=== PATIENT | male | born 1940 | race Caucasian/White ===

== ENCOUNTER 2017-05-29 12:42 | Observation (INO) | payer MEDICARE ==
[2017-05-29] VITALS (7 sets, daily range): BP systolic 109–159; BP diastolic 59–72; PULSE 64–89; RESP 16–20; TEMP 98.1–100.7; O2SAT 93–97
[~2017-05-29] VITALS: Ht 188 cm; Wt 112.2 kg
[2017-05-29] MEDS ORDERED: LOSA50TA PO (13:05)
--- NOTE | 2017-05-29 13:12 | PD ---
HPI Chief Complaint: Cold / Flu Symptoms Time Seen by Provider: 12:55 Travel History International Travel<30 days: Yes Contact w/Intl Traveler<30days: Yes Name of Country Traveled to: [place] Traveled to known affect area: No History of Present Illness HPI This 76-year-old female says she been sick for several days. He's been having cough and congestion. He feels very weak and sleepy. He thinks that yesterday he may have passed out. He has a history of hypertension and diabetes. He has no history of heart disease. He has been coughing. He says he feels weak all over. He was in [place] 4 OR 5 days ago [facility] Past Medical History Diminished Hearing: No Hypertension: Yes Influenza Vaccination: No Past Surgical History Other Surgery: Yes (trauma-- back and face) Social History Alcohol Use: Yes Tobacco Use: No Allergies-Medications (Allergen,Severity, Reaction): Coded Allergies: No Known Allergies (Unverified , 05/29/17) Reported Meds & Prescriptions Reported Meds & Active Scripts Active Reported Losartan (Losartan Potassium) 50 Mg Tab 50 Mg PO DAILY Review of Systems General / Constitutional: Positive: Fever, Chills Eyes: No: Diploplia, Blurred Vision HENT: Positive: Sore Throat, No: Headaches, Vertigo Cardiovascular: No: Chest Pain or Discomfort, Palpitations Respiratory: Positive: Cough Gastrointestinal: No: Vomiting, Diarrhea Genitourinary: No: Urgency Musculoskeletal: Positive: Myalgias Skin: No Rash Neurologic: Positive: Weakness Psychiatric: No: Anxiety Endocrine: No: Heat Intolerance Hematologic/Lymphatic: No: Easy Bruising Physical Exam Narrative GENERAL: Well-developed male SKIN: Focused skin assessment warm/dry. HEAD: Atraumatic. Normocephalic. EYES: Pupils equal and round. No scleral icterus. No injection or drainage. ENT: No nasal bleeding or discharge. Mucous membranes pink and moist. NECK: Trachea midline. No JVD. CARDIOVASCULAR: Regular rate and rhythm. No murmur appreciated. RESPIRATORY: No accessory muscle use. There are some basilar rales. Breath sounds equal bilaterally. GASTROINTESTINAL: Abdomen soft, non-tender, nondistended. Hepatic and splenic margins not palpable. MUSCULOSKELETAL: No obvious deformities. No clubbing. No cyanosis. No edema. NEUROLOGICAL: Awake and alert. No obvious cranial nerve deficits. Motor grossly within normal limits. Normal speech. PSYCHIATRIC: Appropriate mood and affect; insight and judgment normal. Data Data Last Documented VS Vital Signs Date Time Temp Pulse Resp B/P (MAP) Pulse Ox O2 Delivery O2 Flow Rate FiO2 05/29/17 14:15 74 18 109/59 (76) 95 Nasal Cannula 2.00 05/29/17 12:47 98.4 Orders Orders Complete Blood Count With Diff (05/29/17 13:06) Comprehensive Metabolic Panel (05/29/17 13:06) Urinalysis - C+S If Indicated (05/29/17 13:06) Influenzae A/B Antigen (05/29/17 13:06) Chest, Single Ap (05/29/17 13:06) Sodium Chlor 0.9% 1000 Ml Inj (Ns 1000 M (05/29/17 13:15) B-Type Natriuretic Peptide (05/29/17 13:29) Blood Culture (05/29/17 13:30) Ceftriaxone Inj (Rocephin Inj) (05/29/17 13:30) Azithromycin Inj (Zithromax Inj) (05/29/17 13:30) Chest, Single Ap (05/29/17 14:28) Lactic Acid Sepsis Protocol (05/29/17 14:40) Sodium Chlor 0.9% 1000 Ml Inj (Ns 1000 M (05/29/17 14:45) Losartan (Cozaar) (05/30/17 09:00) Admit Order (Ed Use Only) (05/29/17 14:48) Labs Laboratory Tests Test 05/29/17 13:10 White Blood Count 14.1 TH/MM3 Red Blood Count 4.93 MIL/MM3 Hemoglobin 14.4 GM/DL Hematocrit 43.6 % Mean Corpuscular Volume 88.5 FL Mean Corpuscular Hemoglobin 29.2 PG Mean Corpuscular Hemoglobin Concent 33.0 % Red Cell Distribution Width 12.7 % Platelet Count 186 TH/MM3 Mean Platelet Volume 9.1 FL Neutrophils (%) (Auto) 79.7 % Lymphocytes (%) (Auto) 9.1 % Monocytes (%) (Auto) 8.8 % Eosinophils (%) (Auto) 0.0 % Basophils (%) (Auto) 2.4 % Neutrophils # (Auto) 11.2 TH/MM3 Lymphocytes # (Auto) 1.3 TH/MM3 Monocytes # (Auto) 1.2 TH/MM3 Eosinophils # (Auto) 0.0 TH/MM3 Basophils # (Auto) 0.3 TH/MM3 CBC Comment AUTO DIFF Differential Total Cells Counted 100 Neutrophils % (Manual) 54 % Band Neutrophils % 35 % Lymphocytes % 10 % Monocytes % 1 % Neutrophils # (Manual) 12.5 TH/MM3 Differential Comment FINAL DIFF MANUAL Blood Urea Nitrogen 21 MG/DL Creatinine 1.40 MG/DL Random Glucose 136 MG/DL Total Protein 7.6 GM/DL Albumin 3.3 GM/DL Calcium Level 8.6 MG/DL Alkaline Phosphatase 64 U/L Aspartate Amino Transf (AST/SGOT) 35 U/L Alanine Aminotransferase (ALT/SGPT) 51 U/L Total Bilirubin 0.5 MG/DL Sodium Level 133 MEQ/L Potassium Level 3.9 MEQ/L Chloride Level 100 MEQ/L Carbon Dioxide Level 23.3 MEQ/L Anion Gap 10 MEQ/L Estimat Glomerular Filtration Rate 49 ML/MIN B-Type Natriuretic Peptide 47 PG/ML MDM Medical Decision Making Medical Screen Exam Complete: Yes Emergency Medical Condition: Yes Medical Record Reviewed: Yes Differential Diagnosis Chest x-rays read as showing some interstitial prominence which I suspect may represent pneumonia. His white count is elevated at 14,000 and he has 54% polys and 35% bands. Patient has been started on Rocephin and Zithromax Narrative Course Patient will be admitted because of his prominent bandemia suggestive of possible pneumonia with sepsis Diagnosis Primary Impression: Pneumonia Admitting Information Admitting Physician Requests: Admit Erick Kelly MD May 29, 2017 13:12
[2017-05-29] MEDS ORDERED: SODIUM CHLOR 0.9% 1000 ML INJ 1,000 ML IV ONE ×2 (13:15→14:45)
[2017-05-29 13:24] LABS: AUTOMATED NEUTROPHIL # 11.2 TH/MM3 (1.8-7.7); BASOPHIL # 0.3 TH/MM3 (0-0.2); BASOPHIL % 2.4 % (0.0-2.0); HEMATOCRIT 43.6 % (39.0-51.0); HEMOGLOBIN 14.4 GM/DL (13.0-17.0); LYMPH % 9.1 % (9.0-44.0); LYMPHOCYTE # 1.3 TH/MM3 (1.0-4.8); MEAN CELL VOLUME 88.5 FL (80.0-100.0); MEAN CORPUSCULAR HEMOGLOBIN 29.2 PG (27.0-34.0); MEAN PLATELET VOLUME 9.1 FL (7.0-11.0); MONO % 8.8 % (0.0-8.0); MONOCYTE # 1.2 TH/MM3 (0-0.9); NEUT % 79.7 % (16.0-70.0); PLATELET COUNT 186 TH/MM3 (150-450); RED BLOOD COUNT 4.93 MIL/MM3 (4.50-5.90); RED CELL DISTRIBUTION WIDTH 12.7 % (11.6-17.2); WHITE BLOOD COUNT 14.1 TH/MM3 (4.0-11.0)
[2017-05-29] MEDS ORDERED: cefTRIAXone INJ 1,000 MG in SODIUM CHLORIDE 0.9% INJ 100 ML IV ONE (13:30)
[2017-05-29] MEDS ORDERED: AZITHROMYCIN INJ 500 MG in SODIUM CHLOR 0.9% 250 ML INJ 250 ML IV ONE (13:30)
[2017-05-29 13:32] LABS: CHLORIDE 100 MEQ/L (98-107); SODIUM (NA) 133 MEQ/L (136-145)
[2017-05-29 13:35] LABS: ALBUMIN 3.3 GM/DL (3.4-5.0); BICARBONATE 23.3 MEQ/L (21.0-32.0); CALCIUM 8.6 MG/DL (8.5-10.1); GLUCOSE,RANDOM 136 MG/DL (74-106)
[2017-05-29 13:36] LABS: BLOOD UREA NITROGEN 21 MG/DL (7-18)
[2017-05-29 13:38] LABS: ALT (GPT) 51 U/L (12-78); AST (GOT) 35 U/L (15-37); GLOMERULAR FILTRATION RATE 49 ML/MIN (>89)
[2017-05-29 13:40] LABS: TOTAL BILIRUBIN ADULT 0.5 MG/DL (0.2-1.0); TOTAL PROTEIN 7.6 GM/DL (6.4-8.2)
[2017-05-29 13:41] LABS: ALKALINE PHOSPHATASE 64 U/L (45-117)
--- NOTE | 2017-05-29 13:49 | RADRPT ---
EXAM DATE/TIME: 05/29/2017 13:23 [facility] COMPARISON: No previous studies available for comparison. INDICATIONS : Cough, fever MEDICAL HISTORY : None. SURGICAL HISTORY : None. ENCOUNTER: Initial ACUITY: 4 - 6 days PAIN SCORE: 0/10 LOCATION: Bilateral chest FINDINGS: The heart size is normal. There is prominence of the interstitial markings. There is a questionable f ocal density in the lateral lower right chest. This could potentially be related to nipple shadow giv en its location. No focal alveolar consolidation is seen. No effusion is seen. The bony structures ap pear grossly intact. CONCLUSION: 1. Mild prominence of the interstitium. This is nonspecific. 2. Small nodular density projecting over the right base. This could represent nipple shadow versus un derlying small pulmonary nodule. One could repeat the chest x-ray with nipple markers for further ben luation. Kunal Olivas MD on May 29, 2017 at 13:46 Board Certified Radiologist. This report was verified electronically.
[2017-05-29 13:50] LABS: BANDS 35 % (0-6); LYMPHOCYTES 10 % (9-44); MONOCYTES 1 % (0-8); NEUTROPHIL # MANUAL DIFF 12.5 TH/MM3 (1.8-7.7); POLYS (SEG NEUTROPHILS) 54 % (16-70)
[2017-05-29] MEDS ORDERED: NALOXONE HCL 0.4 MG/ML AMP IV PUSH PRN (15:00)
[2017-05-29] MEDS ORDERED: LACTULOSE SYRUP 20 GM/30 ML CUP PO PRN (15:00)
[2017-05-29] MEDS ORDERED: TEMAZEPAM 15 MG CAP PO PRN (15:00)
[2017-05-29] MEDS ORDERED: BISACODYL 10 MG SUPP RECTAL PRN (15:00)
[2017-05-29] MEDS ORDERED: SODIUM CHLORIDE 0.9% FLUSH 10 ML FLUSH IV FLUSH PRN (15:00)
[2017-05-29] MEDS ORDERED: ONDANSETRON HCL 4 MG/2 ML VIAL IVP PRN (15:00)
[2017-05-29] MEDS ORDERED: ACETAMINOPHEN 325 MG TAB PO PRN (15:00)
[2017-05-29] MEDS ORDERED: MAGNESIUM HYDROXIDE SUSP 30 ML CUP PO PRN (15:00)
[2017-05-29] MEDS ORDERED: RESP: ALBUTEROL 2.5 MG/IPRATROPIUM 0.5 MG NEB (PRN) NEB (15:00)
[2017-05-29] MEDS ORDERED: SENNOSIDES 8.6 MG TAB PO PRN (15:00)
[2017-05-29] MEDS: ENOXAPARIN SODIUM 40 MG/0.4 ML SYRINGE SQ SCH (15:05)
--- NOTE | 2017-05-29 15:51 | RADRPT ---
EXAM DATE/TIME: 05/29/2017 14:47 [facility] COMPARISON: CHEST SINGLE AP, May 29, 2017, 13:23. INDICATIONS : Repeat ap chest with nipple markers MEDICAL HISTORY : None. SURGICAL HISTORY : None. ENCOUNTER: Subsequent ACUITY: 4 - 6 days PAIN SCORE: 0/10 LOCATION: Bilateral Chest FINDINGS: Nipple markers were placed and disease existing right lower lobe nodule is not reproduced, however do es not correspond to the patient's nipple. This could simply have been overlap of shadows. Mild promi nence of interstitial markings has not changed. CONCLUSION: Previously questioned right lung base nodule does not correspond to the patient's nipple, however is not reproduced probably due to overlap of shadows and there is no change in slight prominence of the interstitial markings. oClin Bernabe MD on May 29, 2017 at 15:48 Board Certified Radiologist. This report was verified electronically.
--- NOTE | 2017-05-29 15:54 | HHI.HP ---
[facility] Unknown Admission Diagnosis PNEUMONIA Diagnoses: (1) Pneumonia Chief Complaint: Generalized weakness. Cough Fever Travel History International Travel<30 Days: Yes Contact w/Intl Traveler <30 Da: Yes Name of Country Traveled to: [place] Traveled to Known Affected Are: No History of Present Illness Written by Gwendolyn Umaña, acting as scribe for Dr. Rivera on 05/29/17 at 15:41. Mr. Edwards is a pleasant 76-year-old male patient with a known medical history of hypertension who presented to the ED with generalized weakness, cough, fever and chills x 5 days. Patient states that he was on a cruise in [place] and returned back with the aforementioned complaints when this morning he states he was too weak to even get out of bed. Patient states he has had subjective fevers , chills and diaphoresis, did not check his temperature at home. Denies any abdominal pain, nausea, vomiting or diarrhea. Does admit to poor appetite the last several days. Patient has also had a productive cough with white colored phlegm noted. States he is in relatively good health. Denies any other complaints. Review of Systems Constitutional: COMPLAINS OF: Diaphoretic episodes, Fatigue, Fever, Chills, Change in appetite, Night Sweats, DENIES: Weight loss, Dizziness Respiratory: COMPLAINS OF: Cough, Sputum production, Shortness of breath Cardiovascular: DENIES: Chest pain Gastrointestinal: DENIES: Abdominal pain, Bloody stools, Constipation, Diarrhea , Nausea, Vomiting Musculoskeletal: COMPLAINS OF: Muscle aches Integumentary: DENIES: Rash Neurologic: DENIES: Abnormal gait Psychiatric: DENIES: Anxiety Except as stated in HPI: all other systems reviewed are Neg Past Family Social History Past Medical History Hypertension Past Surgical History Denies any previous surgeries. Reported Medications Active Reported Losartan (Losartan Potassium) 50 Mg Tab 50 Mg PO DAILY Allergies: Coded Allergies: No Known Allergies (Unverified , 05/29/17) Active Ordered Medications Current Medications Medications (Trade) Dose Ordered Sig/[place] Route Start Time Stop Time Status Last Admin Sodium Chloride 1,000 ml @ 999 mls/hr BOLUS ONCE IV 05/29/17 14:45 05/29/17 15:45 05/29/17 15:05 (Cozaar) 50 mg DAILY PO 05/30/17 09:00 (NS Flush) 2 ml UNSCH PRN IV FLUSH 05/29/17 15:00 (NS Flush) 2 ml BID IV FLUSH 05/29/17 21:00 (Tylenol) 650 mg Q4H PRN PO 05/29/17 15:00 (Zofran Inj) 4 mg Q6H PRN IVP 05/29/17 15:00 (Restoril) 15 mg HS PRN PO 05/29/17 15:00 (Lovenox Inj) 40 mg Q24H SQ 05/29/17 15:00 05/29/17 15:05 (Narcan Inj) 0.4 mg UNSCH PRN IV PUSH 05/29/17 15:00 (Deedee-Colace) 1 tab BID PO 05/29/17 21:00 (Milk Of Magnesia Liq) 30 ml Q12H PRN PO 05/29/17 15:00 (Senokot) 17.2 mg Q12H PRN PO 05/29/17 15:00 (Dulcolax Supp) 10 mg DAILY PRN RECTAL 05/29/17 15:00 (Lactulose Liq) 30 ml DAILY PRN PO 05/29/17 15:00 Ceftriaxone Sodium 1000 mg/ Sodium Chloride 100 ml @ 200 mls/hr Q24H IV 05/30/17 13:00 Azithromycin 500 mg/Sodium Chloride 250 ml @ 250 mls/hr Q24H IV 05/30/17 14:00 (Duoneb Neb) 1 ampule Q4HR NEB PRN NEB 05/29/17 15:00 (Duoneb Neb) 1 ampule Q6HR WHILE AWAKE NEB NEB 05/29/17 20:00 Family History Denies any significant family medical history. Social History Denies any current tobacco use, does admit to quitting smoking 40 years ago. Admits to occasional alcohol use. Denies any illicit drug use. Physical Exam Vital Signs Vital Signs Date Time Temp Pulse Resp B/P (MAP) Pulse Ox O2 Delivery O2 Flow Rate FiO2 05/29/17 14:15 74 18 109/59 (76) 95 Nasal Cannula 2.00 05/29/17 12:47 98.4 64 16 129/66 (08) 93 Physical Exam GENERAL: This is a well-nourished, well-developed male patient, lying in bed in no apparent distress. SKIN: No rashes, ecchymoses or lesions. Cool and dry. HEAD: Atraumatic. Normocephalic. EYES: Pupils equal round and reactive. Extraocular motions intact. No scleral icterus. No injection or drainage. ENT: Nose without bleeding, purulent drainage or septal hematoma. Throat without erythema, tonsillar hypertrophy or exudate. Uvula midline. Airway patent. NECK: Trachea midline. No JVD. Supple. CARDIOVASCULAR: Regular rate and rhythm without murmurs, gallops, or rubs. RESPIRATORY Scattered wheezing and bronchial breath sounds to posterior lung blank. Diminished in the bases. Breath sounds equal bilaterally. No rales, or rhonchi. GASTROINTESTINAL: Abdomen soft, non-tender, nondistended. No guarding. MUSCULOSKELETAL: Extremities without clubbing, cyanosis, or edema. No joint tenderness, effusion, or edema noted. NEUROLOGICAL: Awake and alert. Cranial nerves II through XII intact. Motor and sensory grossly within normal limits. Five out of 5 muscle strength in all muscle groups. Normal speech. Laboratory Laboratory Tests Test 05/29/17 13:10 05/29/17 15:27 White Blood Count 14.1 Red Blood Count 4.93 Hemoglobin 14.4 Hematocrit 43.6 Mean Corpuscular Volume 88.5 Mean Corpuscular Hemoglobin 29.2 Mean Corpuscular Hemoglobin Concent 33.0 Red Cell Distribution Width 12.7 Platelet Count 186 Mean Platelet Volume 9.1 Neutrophils (%) (Auto) 79.7 Lymphocytes (%) (Auto) 9.1 Monocytes (%) (Auto) 8.8 Eosinophils (%) (Auto) 0.0 Basophils (%) (Auto) 2.4 Neutrophils # (Auto) 11.2 Lymphocytes # (Auto) 1.3 Monocytes # (Auto) 1.2 Eosinophils # (Auto) 0.0 Basophils # (Auto) 0.3 CBC Comment AUTO DIFF Differential Total Cells Counted 100 Neutrophils % (Manual) 54 Band Neutrophils % 35 Lymphocytes % 10 Monocytes % 1 Neutrophils # (Manual) 12.5 Differential Comment FINAL DIFF MANUAL Blood Urea Nitrogen 21 Creatinine 1.40 Random Glucose 136 Total Protein 7.6 Albumin 3.3 Calcium Level 8.6 Alkaline Phosphatase 64 Aspartate Amino Transf (AST/SGOT) 35 Alanine Aminotransferase (ALT/SGPT) 51 Total Bilirubin 0.5 Sodium Level 133 Potassium Level 3.9 Chloride Level 100 Carbon Dioxide Level 23.3 Anion Gap 10 Estimat Glomerular Filtration Rate 49 B-Type Natriuretic Peptide 47 Date/Time Source Procedure Growth Status 05/29/17 13:15 Blood Peripheral Aerobic Blood Culture Pending Received 05/29/17 13:15 Blood Peripheral Anaerobic Blood Culture Pending Received 05/29/17 13:15 Nasal Aspirate Influenza Types A,B Antigen (CURRY) - Final NEGATIVE FOR FLU A AND B ANTIGEN.... Complete Result Diagram: 05/29/17 1310 05/29/17 1310 Imaging Last Impressions Chest X-Ray 05/29/17 1306 Signed Impressions: Service Date/Time: Wednesday, May 29, 2017 13:23 - CONCLUSION: 1. Mild prominence of the interstitium. This is nonspecific. 2. Small nodular density projecting over the right base. This could represent nipple shadow versus underlying small pulmonary nodule. One could repeat the chest x-ray with nipple markers for further evaluation. Kunal Olivas MD Septic Shock Reassessment Septic shock perfusion: reassessment completed Caprini VTE Risk Assessment Caprini VTE Risk Assessment: Mod/High Risk (score >= 2) Caprini Risk Assessment Model Point Value = 1 Point Value = 2 Point Value = 3 Point Value = 5 Age 41-60 Minor surgery BMI > 25 kg/m2 Swollen legs Varicose veins or History of unexplained or recurrent spontaneous Oral contraceptives or hormone replacement Sepsis (< 1 month) Serious lung disease, including pneumonia (< 1 month) Abnormal pulmonary function Acute myocardial infarction Congestive heart failure (< 1 month) History of inflammatory bowel disease Medical patient at bed rest Age 61-74 Arthroscopic surgery Major open surgery (> 45 min) Laparoscopic surgery (> 45 min) Malignancy Confined to bed (> 72 hours) Immobilizing plaster cast Central venous access Age >= 75 History of VTE Family history of VTE Factor V Leiden Prothrombin [id number] Lupus anticoagulant Anticardiolipin antibodies Elevated serum homocysteine Heparin-induced thrombocytopenia Other congenital or acquired thrombophilia Stroke (< 1 month) Elective arthroplasty Hip, pelvis, or leg fracture Acute spinal cord injury (< 1 month) Prophylaxis Regimen Total Risk Factor Score Risk Level Prophylaxis Regimen 0-1 Low Early ambulation 2 Moderate Order ONE of the following: *Sequential Compression Device (SCD) *Heparin 5000 units SQ BID 3-4 Higher Order ONE of the following medications: *Heparin 5000 units SQ TID *Enoxaparin/Lovenox 40 mg SQ daily (WT < 150 kg, CrCl > 30 mL/min) *Enoxaparin/Lovenox 30 mg SQ daily (WT < 150 kg, CrCl > 10-29 mL/min) *Enoxaparin/Lovenox 30 mg SQ BID (WT < 150 kg, CrCl > 30 mL/min) AND/OR *Sequential Compression Device (SCD) 5 or more Highest Order ONE of the following medications: *Heparin 5000 units SQ TID (Preferred with Epidurals) *Enoxaparin/Lovenox 40 mg SQ daily (WT < 150 kg, CrCl > 30 mL/min) *Enoxaparin/Lovenox 30 mg SQ daily (WT < 150 kg, CrCl > 10-29 mL/min) *Enoxaparin/Lovenox 30 mg SQ BID (WT < 150 kg, CrCl > 30 mL/min) AND *Sequential Compression Device (SCD) Assessment and Plan Problem List: (1) Pneumonia ICD Code: J18.9 - Pneumonia, unspecified organism Status: Acute Assessment and Plan Mr. Edwards is a pleasant 76-year-old male patient with a known medical history of hypertension who presented to the ED with generalized weakness, cough, fever and chills x 5 days. Bilateral community-acquired pneumonia with subjective, fever, chills, cough WBC 14.1. Afebrile since presentation. Continue to monitor. Lactic acid pending. BNP 47. CXR reviewed showing mild prominence of the interstitium. Small nodular density projecting over the right base, possible underlying small pulmonary nodule. Will repeat CXR with nipple markers. Follow image. Ensure hydration. Status post 2 L NS bolus in ED. Continue maintenance IVF after administration. Will start on Azithromycin and Ceftriaxone IV. Blood cultures obtained and pending. Follow. Nasal aspirate negative for influenza. Duonebs scheduled and available PRN wheezing/SOB. Supplemental O2 to keep sats > 92%. PT to evaluate and treat. Hypertension, chronic: Continue home medications. Acute kidney injury: likely secondary to dehydration vs infection vs chronic from hypertension. Will follow BMP. Continue to monitor. DVT Prophylaxis: SCDs. Lovenox. This note was transcribed by DANIELA Villela . I, Dr. Jazmin Rivera personally performed the history, physical exam, and medical decision making; and confirmed the accuracy of the information in the transcribed note. Authenticated by Dr. Jazmin Rivera on 05/29/17 at 15:41. Problem Qualifiers (1) Pneumonia: Gwendolyn Umaña May 29, 2017 15:54 Jazmin Rivera MD May 29, 2017 17:39
[2017-05-29] MEDS: SODIUM CHLOR 0.9% 1000 ML INJ 1,000 ML IV SCH (16:00)
[2017-05-29 17:20] LABS: BILIRUBIN, URINE NEG (NEG); BLOOD, URINE SMALL (NEG); GLUCOSE,URINE NEG (NEG); KETONE, URINE NEG (NEG); NITRITE,URINE NEG (NEG); PH, URINE 5.5 (5.0-8.5); URINE LEUKOCYTE ESTERASE NEG (NEG)
[2017-05-29 17:26] LABS: URINE COLOR YELLOW (YELLW/STRAW)
[2017-05-29 17:27] LABS: RBC, URINE 0-3 /hpf (0-3); SQUAMOUS EPITHELIAL CELL URINE 0-5 /hpf (0-5); WBC, URINE 0-2 /hpf (0-5)
[2017-05-29] MEDS: RESP: ALBUTEROL 2.5 MG/IPRATROPIUM 0.5 MG NEB (SCH) NEB (19:32)
[2017-05-29] MEDS: DOCUSATE SODIUM 50 MG/SENNA 8.6 MG TAB PO SCH (21:00)
[2017-05-29] MEDS: SODIUM CHLORIDE 0.9% FLUSH 10 ML FLUSH IV FLUSH SCH (21:00)
[2017-05-30] VITALS (8 sets, daily range): BP systolic 127–150; BP diastolic 59–84; PULSE 74–86; RESP 12–24; TEMP 98.1–101.4; O2SAT 91–98
[2017-05-30] MEDS: SODIUM CHLOR 0.9% 1000 ML INJ 1,000 ML IV SCH ×2 (03:00→12:00)
[2017-05-30] MEDS: RESP: ALBUTEROL 2.5 MG/IPRATROPIUM 0.5 MG NEB (SCH) NEB ×3 (07:33→19:17)
[2017-05-30] MEDS: DOCUSATE SODIUM 50 MG/SENNA 8.6 MG TAB PO SCH ×2 (08:28→21:32)
[2017-05-30] MEDS: SODIUM CHLORIDE 0.9% FLUSH 10 ML FLUSH IV FLUSH SCH ×2 (08:28→21:00)
[2017-05-30] MEDS: LOSARTAN 50 MG TAB PO SCH (08:31)
--- NOTE | 2017-05-30 09:51 | HHI.PR ---
Subjective Remarks In the chair. Feels shortness of breath and feels tired. Less cough today not much sputum production. No fever or chills overnight. However last night he had a repeat fever of 101. Objective Vitals Vital Signs Date Time Temp Pulse Resp B/P (MAP) Pulse Ox O2 Delivery O2 Flow Rate FiO2 05/30/17 07:36 98 Nasal Cannula 2.00 05/30/17 04:33 98.4 05/30/17 00:50 101.4 77 24 136/59 (84) 95 05/29/17 21:11 100.7 89 20 159/72 (101) 97 05/29/17 19:32 94 Nasal Cannula 2.00 05/29/17 18:19 98.1 68 18 144/70 (94) 96 05/29/17 16:30 96 Nasal Cannula 2.00 05/29/17 15:42 70 18 128/62 (84) 97 Nasal Cannula 2.00 05/29/17 14:15 74 18 109/59 (76) 95 Nasal Cannula 2.00 05/29/17 12:47 98.4 64 16 129/66 (87) 93 I/O 05/29/17 05/29/17 05/29/17 05/30/17 05/30/17 05/30/17 07:00 15:00 23:00 07:00 15:00 23:00 Intake Total 1250 ml 1100 ml Output Total 1250 ml Balance 1250 ml -150 ml Intake IV Total 1250 ml 1100 ml Output Urine Total 1250 ml # Bowel Movements 0 Result Diagram: 05/29/17 1310 05/29/17 1310 Imaging Last Impressions Chest X-Ray 05/29/17 1428 Signed Impressions: Service Date/Time: Monday, May 29, 2017 14:47 - CONCLUSION: Previously questioned right lung base nodule does not correspond to the patient's nipple, however is not reproduced probably due to overlap of shadows and there is no change in slight prominence of the interstitial markings. Colin Bernabe MD Objective Remarks GENERAL: This is a well-nourished, well-developed male patient, lying in bed in no apparent distress. SKIN: No rashes, ecchymoses or lesions. Cool and dry. HEAD: Atraumatic. Normocephalic. EYES: Pupils equal round and reactive. Extraocular motions intact. No scleral icterus. No injection or drainage. ENT: Nose without bleeding, purulent drainage or septal hematoma. Throat without erythema, tonsillar hypertrophy or exudate. Uvula midline. Airway patent. NECK: Trachea midline. No JVD. Supple. CARDIOVASCULAR: Regular rate and rhythm without murmurs, gallops, or rubs. RESPIRATORY Scattered wheezing and bronchial breath sounds to posterior lung blank. Diminished in the bases. Breath sounds equal bilaterally. No rales, or rhonchi. GASTROINTESTINAL: Abdomen soft, non-tender, nondistended. No guarding. MUSCULOSKELETAL: Extremities without clubbing, cyanosis, or edema. No joint tenderness, effusion, or edema noted. NEUROLOGICAL: Awake and alert. Cranial nerves II through XII intact. Motor and sensory grossly within normal limits. Five out of 5 muscle strength in all muscle groups. Normal speech. A/P Problem List: (1) Pneumonia ICD Code: J18.9 - Pneumonia, unspecified organism Status: Acute Assessment and Plan Mr. Edwards is a pleasant 76-year-old male patient with a known medical history of hypertension who presented to the ED with generalized weakness, cough, fever and chills x 5 days. Bilateral community-acquired pneumonia with subjective, fever, chills, cough WBC 14.1. Afebrile since presentation. Continue to monitor. Lactic acid pending. BNP 47. CXR reviewed showing mild prominence of the interstitium. Small nodular density projecting over the right base, possible underlying small pulmonary nodule. Will repeat CXR with nipple markers. Follow image. Ensure hydration. Status post 2 L NS bolus in ED. Continue maintenance IVF after administration. Will start on Azithromycin and Ceftriaxone IV. Blood cultures obtained and pending. Follow. Nasal aspirate negative for influenza. Duonebs scheduled and available PRN wheezing/SOB. Supplemental O2 to keep sats > 92%. PT to evaluate and treat. Hypertension, chronic: Continue home medications. Acute kidney injury: likely secondary to dehydration vs infection vs chronic from hypertension. Will follow BMP. Continue to monitor. DVT Prophylaxis: SCDs. Lovenox. Discharge plan possible discharge tomorrow if afebrile, monitor cultures Problem Qualifiers (1) Pneumonia: Jazmin Rivera MD May 30, 2017 09:51
[2017-05-30] MEDS ORDERED: INFLUENZA VIRUS VACCINE (QUADRIVALENT) 0.5 ML SYR IM ONE (10:00)
[2017-05-30] MEDS ORDERED: PNEUMOCOCCAL POLYVALENT INJ 25 MCG/0.5 ML SYR IM ONE (10:00)
[2017-05-30 11:05] LABS: AUTOMATED NEUTROPHIL # 10.2 TH/MM3 (1.8-7.7); BASOPHIL % 0.4 % (0.0-2.0); EOSINOPHIL % 0.1 % (0.0-4.0); HEMOGLOBIN 13.1 GM/DL (13.0-17.0); LYMPH % 8.2 % (9.0-44.0); LYMPHOCYTE # 0.9 TH/MM3 (1.0-4.8); MEAN CELL VOLUME 88.2 FL (80.0-100.0); MEAN CORPUSCULAR HGB CONC 32.9 % (32.0-36.0); MEAN PLATELET VOLUME 8.9 FL (7.0-11.0); MONO % 2.4 % (0.0-8.0); MONOCYTE # 0.3 TH/MM3 (0-0.9); NEUT % 88.9 % (16.0-70.0); PLATELET COUNT 144 TH/MM3 (150-450); RED BLOOD COUNT 4.53 MIL/MM3 (4.50-5.90); RED CELL DISTRIBUTION WIDTH 12.8 % (11.6-17.2); WHITE BLOOD COUNT 11.4 TH/MM3 (4.0-11.0)
[2017-05-30 11:17] LABS: CALCIUM 8.5 MG/DL (8.5-10.1)
[2017-05-30 11:18] LABS: BICARBONATE 27.4 MEQ/L (21.0-32.0)
[2017-05-30 11:22] LABS: CREATININE 0.97 MG/DL (0.60-1.30)
[2017-05-30] MEDS ORDERED: cefTRIAXone INJ 1,000 MG in SODIUM CHLORIDE 0.9% INJ 100 ML IV SCH (13:00)
[2017-05-30] MEDS: ENOXAPARIN SODIUM 40 MG/0.4 ML SYRINGE SQ SCH (13:43)
[2017-05-30] MEDS ORDERED: AZITHROMYCIN INJ 500 MG in SODIUM CHLOR 0.9% 250 ML INJ 250 ML IV SCH (14:00)
[2017-05-31 01:18] VITALS: BP 167/77; PULSE 69; RESP 20; TEMP 98.1; O2SAT 95
[2017-05-31] MEDS: SODIUM CHLOR 0.9% 1000 ML INJ 1,000 ML IV SCH (02:09)
[2017-05-31] MEDS: RESP: ALBUTEROL 2.5 MG/IPRATROPIUM 0.5 MG NEB (SCH) NEB (07:42)
[2017-05-31 07:43] VITALS: O2SAT 94
[2017-05-31 07:50] VITALS: BP 181/86; PULSE 72; RESP 20; TEMP 98.8; O2SAT 92
[2017-05-31] MEDS: DOCUSATE SODIUM 50 MG/SENNA 8.6 MG TAB PO SCH (09:00)
[2017-05-31] MEDS ORDERED: INFLUENZA VIRUS VACCINE (QUADRIVALENT) 0.5 ML SYR IM ONE (09:00)
[2017-05-31] MEDS ORDERED: PNEUMOCOCCAL POLYVALENT INJ 25 MCG/0.5 ML SYR IM ONE (09:00)
[2017-05-31] MEDS ORDERED: AZIT500T2 PO ×2 (09:00→09:06)
--- NOTE | 2017-05-31 09:07 | HHI.DCPOC ---
Discharge Care Plan Diagnosis: (1) Pneumonia Your Health Problems Are: Cough Shortness of Breath Goals to Promote Your Health * To prevent worsening of your condition and complications * To maintain your health at the optimal level Directions to Meet Your Goals Take your medications as prescribed Follow your dietary instruction Follow activity as directed Keep your appointments as scheduled Take your immunizations and boosters as scheduled If your symptoms worsen call your PCP, if no PCP go to Urgent Care Center or Emergency Room Smoking is Dangerous to Your Health. Avoid second hand smoke Call the 24-hour hour crisis hotline for domestic abuse at Gwendolyn Umaña May 31, 2017 09:07
--- NOTE | 2017-05-31 09:07 | HHI.PR ---
Subjective Remarks Follow up pneumonia. Patient seen and examined, lying in bed comfortably. Awake and alert. States he slept well. Feeling much better. Breathing comfortably. Denies any chest pain or shortness of breath. Eating well. Eager to go home. Afebrile. Does complain of nonproductive cough, requesting cough medicine. Objective Vitals Vital Signs Date Time Temp Pulse Resp B/P (MAP) Pulse Ox O2 Delivery O2 Flow Rate FiO2 05/31/17 07:43 94 21 05/31/17 05:13 05/31/17 01:18 98.1 69 20 167/77 (107) 95 05/30/17 19:49 98.3 86 20 136/76 (96) 94 05/30/17 19:17 97 21 05/30/17 16:00 98.1 75 14 150/84 (106) 97 05/30/17 12:00 98.1 74 12 127/78 (94) 93 I/O 05/30/17 05/30/17 05/30/17 05/31/17 05/31/17 05/31/17 07:00 15:00 23:00 07:00 15:00 23:00 Intake Total 1100 ml 358 ml 705 ml 1185 ml Output Total 1250 ml 750 ml Balance -150 ml 358 ml 705 ml 435 ml Intake Oral 358 ml IV Total 1100 ml 705 ml 1185 ml Output Urine Total 1250 ml 750 ml # Voids 2 # Bowel Movements 0 1 1 Result Diagram: 05/30/17 1055 05/30/17 1055 Imaging Last Impressions Chest X-Ray 05/29/17 1428 Signed Impressions: Service Date/Time: Monday, May 29, 2017 14:47 - CONCLUSION: Previously questioned right lung base nodule does not correspond to the patient's nipple, however is not reproduced probably due to overlap of shadows and there is no change in slight prominence of the interstitial markings. Colin Bernabe MD Objective Remarks GENERAL: This is a well-nourished, well-developed male patient, lying in bed in no apparent distress. SKIN: No rashes, ecchymoses or lesions. Cool and dry. HEAD: Atraumatic. Normocephalic. EYES: Pupils equal round and reactive. Extraocular motions intact. No scleral icterus. No injection or drainage. ENT: Nose without bleeding, purulent drainage or septal hematoma. Throat without erythema, tonsillar hypertrophy or exudate. Uvula midline. Airway patent. NECK: Trachea midline. No JVD. Supple. CARDIOVASCULAR: Regular rate and rhythm without murmurs, gallops, or rubs. RESPIRATORY Clear breath sounds. Breath sounds equal bilaterally. No rales, or rhonchi. GASTROINTESTINAL: Abdomen soft, non-tender, nondistended. No guarding. MUSCULOSKELETAL: Extremities without clubbing, cyanosis, or edema. No joint tenderness, effusion, or edema noted. NEUROLOGICAL: Awake and alert. Cranial nerves II through XII intact. Motor and sensory grossly within normal limits. Five out of 5 muscle strength in all muscle groups. Normal speech. A/P Problem List: (1) Pneumonia ICD Code: J18.9 - Pneumonia, unspecified organism Status: Acute Assessment and Plan Mr. Edwards is a pleasant 76-year-old male patient with a known medical history of hypertension who presented to the ED with generalized weakness, cough, fever and chills x 5 days. Bilateral community-acquired pneumonia with subjective, fever, chills, cough WBC 14.1-- 11.1. Afebrile since presentation. Continue to monitor. Lactic acid pending. BNP 47. CXR reviewed showing mild prominence of the interstitium. Small nodular density projecting over the right base, possible underlying small pulmonary nodule. Repeat CXR does not reproduce this nodule. Status post 2 L NS bolus in ED. Eating and drinking well. On Azithromycin and Ceftriaxone IV. Blood cultures NGTD. Nasal aspirate negative for influenza. Duonebs scheduled and available PRN wheezing/SOB. Supplemental O2 to keep sats > 92%. Comfortable on RA. PT to evaluate and treat. No fever overnight. Hypertension, chronic: Continue home medications. Acute kidney injury: likely secondary to dehydration vs infection vs chronic from hypertension. Creatinine improved. DVT Prophylaxis: SCDs. Lovenox. Discharge Planning Discharge today. Problem Qualifiers (1) Pneumonia: Gwendolyn Umaña May 31, 2017 09:07
[2017-05-31] MEDS ORDERED: BENZ100 PO (09:08)
[2017-05-31] MEDS ORDERED: GETGO ROLLING W1 MI1 (09:10)
[2017-05-31] MEDS: LOSARTAN 50 MG TAB PO SCH (10:13)
[2017-05-31] MEDS: SODIUM CHLORIDE 0.9% FLUSH 10 ML FLUSH IV FLUSH SCH (10:14)
[2017-05-31] MEDS ORDERED: CEFU1TAB18 PO (10:22)
[2017-05-31 12:38] VITALS: BP 193/98
[2017-05-31 13:35] VITALS: BP 190/106; RESP 18; O2SAT 95
== END 2017-05-31 14:30 | disposition home or self-care (01) ==
LOC: PHED 12:42 → PHEDA 14:49 → PH3A 15:59
PROVIDERS: ADMIT Hospitalist; ATTEND Hospitalist
DX: J18.9 Pneumonia, unspecified organism (principal); I10 Essential (primary) hypertension; N17.9 Acute kidney failure, unspecified; Z79.899 Other long term (current) drug therapy; Z23 Encounter for immunization; R06.02 Shortness of breath
CPT/HCPCS: 71010; 80048; 80053; 81001; 83605; 83880; 85007; 85025; 85027; 87040; 87804; 90732; 94640; 94664; 96361; 96365; 96366; 96372; 97162; 99285; G0008; G0009; G0378; G8987; G8988; J0456; J0696; J1650; J7030; J7050; Q2038; 90471; 90686